=== PATIENT | male | born 1985 | race Hispanic/Latino ===

== ENCOUNTER 2020-04-09 03:06 | Emergency (ER) | payer SELFPAY ==
[2020-04-09 03:24] LABS: Bilirubin Negative (Negative); Blood, Urine Trace (Negative); Glucose, Urine (Dipstick) Negative (Negative); Ketone, Urine Trace mg/dL (Negative); Leukocyte Negative (Negative); Nitrite Negative (Negative); Protein, Urine (Dipstick) Negative (Neg-Trace); Urobilinogen 0.2 mg/dL (Less than 2); pH, Urine 5.5 (5.0-9.0)
[2020-04-09 03:27] LABS: Clarity Clear (Clear); Specific Gravity, Urine 1.029 (1.002-1.036)
[2020-04-09] MEDS ORDERED: Morphine 4 MG/ML VIAL ONE (03:39)
[2020-04-09] MEDS ORDERED: Ondansetron PF 4 MG/2 ML Vial ONE (03:39)
[2020-04-09 03:46] LABS: #Basophils 0.1 thou/uL (0.0-0.2); #Eosinphils 0.5 thou/uL (0.0-0.7); #Lymphocytes 2.6 thou/uL (1.20-3.40); #Neutrophils 3.1 thou/uL (1.40-6.50); %Basophils 0.9 % (0.0-1.0); %Eosinophils 6.9 % (0.0-10.0); %Lymphocytes 35.7 % (21.0-51.0); %Monocytes 13.5 % (0.0-10.0); Hemoglobin 15.8 g/dL (14.0-18.0); Mean Corpuscular HGB CONC 34.6 g/dL (32.0-36.0); Mean Corpuscular Hemoglobin 30.9 pg (27.0-31.0); Mean Corpuscular Volume 89.1 fL (78.0-98.0); Mean Platelet Volume 9.1 fL (7.4-10.4); Platelet Count 193 thou/uL (130-400); RBC Distribution Width 11.9 % (11.5-14.5); Red Blood Cell (RBC) Count 5.12 mill/uL (4.70-6.10); White Blood Cell (WBC) Count 7.3 thou/uL (4.8-10.8)
[2020-04-09 04:10] LABS: ALT (SGPT) 50 U/L (8-55); AST (SGOT) 29 U/L (5-34); Albumin 3.8 g/dL (3.5-5.0); Alkaline Phosphatase 61 U/L (40-110); Anion Gap 12 mmol/L (10-20); BUN (Urea Nitrogen) 19 mg/dL (8.9-20.6); Bilirubin, Total 0.4 mg/dL (0.2-1.2); Calc. Creatinine Clearance 0 mL/min (70-130); Calcium 8.9 mg/dL (7.8-10.44); Carbon Dioxide 22 mmol/L (22-29); Chloride 105 mmol/L (98-107); Estimated GFR-MDRD 84; Globulin 3.5 g/dL (2.4-3.5); Glucose 126 mg/dL (70-105); Potassium 3.4 mmol/L (3.5-5.1); Protein, Total 7.3 g/dL (6.0-8.3); Sodium 136 mmol/L (136-145)
[2020-04-09] MEDS ORDERED: Ketorolac Tromethamine 30 MG/ML VIAL ONE (04:36)
--- NOTE | 2020-04-09 08:04 | CT ---
PRELIMINARY REPORT/[facility]/EMERGENCY AFTER HOURS PROCEDURE EXAM: CT Abdomen and Pelvis Without Intravenous Contrast CLINICAL HISTORY: PT REPORTS LEFT LOWER BACK BURNING PAIN THAT STARTED AT 2 AM. PT DENIES URINARY COMPLAINTS OR TRAUMA. DIARRHEA DAY BEFORE YESTERDAY, DIARRHEA STOPPED AFTER TAKING IMMODIUM TECHNIQUE: Axial computed tomography images of the abdomen and pelvis without intravenous contrast. CONTRAST: None. COMPARISON: None provided. FINDINGS: LUNG BASES: No basilar airspace consolidation or pleural effusion. LIVER: There is fatty infiltration of liver. GALLBLADDER AND BILE DUCTS: Unremarkable. No calcified stone. No ductal dilation. PANCREAS: Unremarkable. SPLEEN: Unremarkable. ADRENAL GLANDS: Unremarkable. KIDNEYS, URETERS, AND BLADDER: Right kidney is within normal limits. 3 mm calculus is present midpole left kidney. There is mild lef t hydroureteronephrosis secondary to a 1.5 mm UVJ calculus. Bladder is grossly normal. STOMACH AND BOWEL: No obstruction. No wall thickening. No CT evidence of colitis or acute diverticulitis. APPENDIX: The appendix is not readily identified. There is no inflammation of fat appreciated about the cecum o r secondary signs to suggest acute appendicitis. PERITONEUM: No free fluid. No free air. LYMPH NODES: No lymphadenopathy. REPRODUCTIVE: Unremarkable as visualized. VASCULATURE: No aortic aneurysm. ABDOMINAL WALL AND SOFT TISSUES: Unremarkable. BONES: No fracture or suspicious osseous abnormality. IMPRESSION: Left nephrolithiasis. Mild left hydroureteronephrosis secondary to a 1.5 mm UVJ calculus. Hepatic skip atosis. ELECTRONICALLY SIGNED BY: Yamilka Woody MD Apr 09, 2020 3:42:50 AM [employer] [facility] This report is intended for review by the ordering physician only, in accordance of law. If you recei ve this report in error, please call [facility] at [phone]. FINAL REPORT Final report by Dr. Conway Emergency after-hours study CT ABDOMEN NONCONTRAST CT PELVIS NONCONTRAST: (Urolithiasis protocol) DATE: 04/09/2020 3:30 AM HISTORY: 35-year-old male with left flank pain COMPARISON: None TECHNIQUE: IV injection of iodinated contrast media: None Oral contrast media: None FINDINGS: Other than for urolithiasis, the lack of IV and oral contrast limits the evaluation. Tiny 1 or 2 mm calculus at left UVJ. Mild dilation of left renal collecting system which has moderately high attenuation suggestive of pos sible blood. 2 or 3 mm calculus at left renal midpole calyx. No right-sided hydronephrosis. Low hepatic attenuation suggestive of fatty liver. Normal appendix visualized: Minor disagreement with preliminary report by [facility]. No colonic diverticulitis, ascites, small bowel dilation, pneumoperitoneum, pleural effusion, or cons olidation at lower lobe lung bases. No compression fracture of lower thoracic and lumbar vertebrae. Empty urinary bladder. Within the limitations of a noncontrast scan, no gross abnormality identified involving right kidney, abdominal aorta, adrenals, pancreas, or spleen. No major disagreement with preliminary report by [facility]. IMPRESSION: 1) Mild left obstructive uropathy due to mild left urolithiasis: A tiny 1 or 2 mm calculus at left ur eterovesical junction causing mild left hydronephrosis. 2) Mild nephrolithiasis: A tiny 2 or 3 mm left renal calculus. 3) High attenuation of left renal collecting system questionable for hematuria. Transcribed Date/Time: 04/09/2020 8:12 AM
== END 2020-04-09 05:28 | disposition home or self-care (01) ==
LOC: ERS 03:06
DX: N13.2 Hydronephrosis with renal and ureteral calculous obstruction (principal)
CPT/HCPCS: 36415; 74176; 80053; 81003; 85025; 96372; 96374; 96375; J0500; J1885; J2270; J2405